=== PATIENT | male | born 1970 | race Caucasian/White ===

== ENCOUNTER → 2017-09-10 07:21 | Outpatient (CLI) | payer SELFPAY ==
[2017-09-10 08:10] LABS: Glucose GTT- Fasting 111 mg/dL (74-106)
[2017-09-10 09:16] LABS: Glucose GTT- 1 Hour 139 mg/dL (120-170)
[2017-09-10 09:17] LABS: Glucose GTT-30 minutes 152 mg/dL (110-170)
[2017-09-10 11:39] LABS: Glucose GTT- 3 Hour 64 mg/dL (74-106)
[2017-09-10 11:42] LABS: Glucose GTT- 2 Hour 111 mg/dL (70-120)
[2017-09-10 12:09] LABS: Glucose GTT- 4 Hour 90 mg/dL (74-106)
[2017-09-10 13:45] LABS: Glucose GTT- 5 Hour 92 mg/dL (74-106)
== END ==
PROVIDERS: Family Provider Family Medicine; PCP Family Medicine; Visit Provider Psychiatry & Neurology Neurology
DX: E16.2 Hypoglycemia, unspecified (principal)
CPT/HCPCS: 36415; 82951; 82952

== ENCOUNTER → 2017-09-12 10:04 | Outpatient (CLI) | payer SELFPAY ==
--- NOTE | 2017-09-12 10:16 | CDU_ITS ---
Reason For Study: CVA Rt. Velocities/BP Lt. Velocities/BP Prox CCA 112.0/23.5 cm/sec. Prox CCA 117.0/31.1 cm/sec. Mid CCA 122.0/32.2 cm/sec. Mid CCA 120.0/35.2 cm/sec. Dist CCA 107.0/32.2 cm/sec. Dist CCA 105.0/31.7 cm/sec. Prox ICA 94.3/23.6 cm/sec. Prox ICA 77.4/28.7 cm/sec. Mid ICA 84.9/33.8 cm/sec. Mid ICA 79.2/31.1 cm/sec. Dist ICA 75.6/29.3 cm/sec. Dist ICA 67.4/31.7 cm/sec. Rt. ICA/CCA = .77. Lt. ICA/CCA = .66. Prox ECA 122.0/23.6 cm/sec. Prox ECA 84.8/19.0 cm/sec. Rt. Vert. 46.9/13.5 cm/sec. Lt. Vert. 44.0/13.5 cm/sec. Right Extracranial There is intimal thickening but no significant atherosclerotic plaque noted in the right common carotid artery. There is no significant atherosclerotic plaque noted in the right internal carotid artery. There is no significant atherosclerotic plaque noted in the right external carotid artery. Antegrade flow is noted in the right vertebral artery. Left Extracranial There is intimal thickening but no significant atherosclerotic plaque noted in the left common carotid artery. There is no significant atherosclerotic plaque noted in the left internal carotid artery. There is no significant atherosclerotic plaque noted in the left external carotid artery. Antegrade flow is noted in the left vertebral artery. Procedure Carotid Duplex [id number]. Exam performed in department. Interpretation Summary No significant atherosclerotic plaque or stenosis noted in the internal carotid arteries bilaterally. Flow within the vertebral arteries is antegrade bilaterally. Ordering Physician: Bavis, Destin Referring Physician: Destin Benson Performed By: Aide Arora RVT
== END ==
PROVIDERS: Family Provider Family Medicine; PCP Family Medicine; Visit Provider Psychiatry & Neurology Neurology
DX: Z86.73 Personal history of transient ischemic attack (TIA), and cerebral infarction without residual deficits (principal)
CPT/HCPCS: 93880

== ENCOUNTER → 2020-04-07 10:04 | Outpatient (CLI) | payer SELFPAY ==
[2020-04-07 12:15] LABS: Basophil# 0.03 X10^3/uL; Basophil% 0.5 % (0-1); Eosinophil# 0.33 X10^3/uL; Eosinophils% 5.6 % (0-5); Hematocrit 45.3 % (40-54); Lymphocyte % 33.7 % (19-41); Mean Corp Hgb Conc 33.1 g/dL (32-36); Mean Corpuscular Hgb 29.4 pg (27.0-32.0); Mean Corpuscular Volume 88.8 fL (80-94); Mean Platelet Vol. 10.1 fl (6.2-12.0); Monocyte# 0.61 X10^3/uL; Monocyte% 10.3 % (0-10); NRBC Flagged by Analyzer 0 % (0-5); Neutrophil # 2.95 X10^3/uL (2.7-7.7); Neutrophil % 49.6 % (47-70); Platelet Count 245 K/mm3 (150-450); White Blood Count 5.9 K/mm3 (4.4-11.0)
[2020-04-07 12:26] LABS: Alanine Aminotransfer ALT/SGPT 40 U/L (16-61); Cholesterol 179 mg/dL (200); Creatinine, Serum 1.07 mg/dL (0.70-1.30); EST Glomerular Filtration Rate 77 mL/min (>60); Est Glom Filt Rate - Afr Amer 93 mL/min (>60); Glucose 107 mg/dL (74-106); High Density Lipoprotein 32 mg/dL
== END ==
PROVIDERS: PCP Family Medicine; Referring Provider Family Medicine; Visit Provider Family Medicine
DX: G43.909 Migraine, unspecified, not intractable, without status migrainosus (principal); E78.00 Pure hypercholesterolemia, unspecified
CPT/HCPCS: 36415; 82465; 82565; 82947; 83718; 84460; 85025

== ENCOUNTER 2020-04-13 11:15 | Observation (INO) | payer OTHER, SELFPAY ==
[2020-04-13] VITALS (9 sets, daily range): BP systolic 102–148; BP diastolic 57–72; PULSE 47–78; RESP 16–18; TEMP 36.4–36.6; O2SAT 95–100; BMI 29.7; BMI 29.1; BMI 29.2
--- NOTE | 2020-04-13 11:23 | NURSING ---
NO OLD EKGS
--- NOTE | 2020-04-13 11:25 | EKG12_ITS ---
Test Reason : CP Blood Pressure : / mmHG Vent. Rate : 053 BPM Atrial Rate : 053 BPM P-R Int : 162 ms QRS Dur : 146 ms QT Int : 432 ms P-R-T Axes : 067 -33 009 degrees QTc Int : 405 ms Sinus bradycardia Left axis deviation Right bundle branch block Abnormal ECG Confirmed by MITCHELL IWLEY, MICHAEL ([id number]), publications editor YANE CRAFT ([id number]) on 04/16/2020 12:59:21 PM Referred By: ANISA Confirmed By:MICHAEL MEDRANO MD
--- NOTE | 2020-04-13 11:25 | RAD_ITS ---
STUDY: X-RAY CHEST REASON FOR EXAM: Male, 50 years old. CHEST PAIN TECHNIQUE: Single AP portable view of the chest. COMPARISON: Comparison is made with prior study dated 01/11/2017. FINDINGS: EKG lead are seen. The lungs are clear and expanded. There is no demonstrated pleural abnormality. Normal size heart. Normal mediastinum and luigi. Normal visualized pulmonary arteries. There is atherosclerotic calcification of the aortic arch with tortuosity. There are diffuse degenerative changes of the visualized thoracic spine. Normal visualized ribs, clavicles, and shoulders. There is no demonstrated abnormality of the visualized soft tissue structures of the upper abdomen. RAD/Chest 1 View (Portable) IMPRESSION: No acute abnormality is seen. Electronically Signed: Dilan Angeles, at 12:04 EDT , Service support ,
[2020-04-13 11:48] LABS: Basophil# 0.02 X10^3/uL; Basophil% 0.3 % (0-1); Eosinophil# 0.31 X10^3/uL; Eosinophils% 5.3 % (0-5); Hematocrit 46.7 % (40-54); Hemoglobin 15.3 g/dL (13.0-16.5); Lymphocyte % 32.5 % (19-41); Mean Corp Hgb Conc 32.8 g/dL (32-36); Mean Corpuscular Hgb 29.2 pg (27.0-32.0); Mean Corpuscular Volume 89.1 fL (80-94); Mean Platelet Vol. 9.6 fl (6.2-12.0); Monocyte# 0.57 X10^3/uL; Monocyte% 9.7 % (0-10); NRBC Flagged by Analyzer 0 % (0-5); Neutrophil # 2.98 X10^3/uL (2.7-7.7); Platelet Count 220 K/mm3 (150-450); RBC Distribution Width CV 13.1 % (11.6-14.6); RBC Distribution Width SD 43.1 fl (35.1-43.9); Red Blood Count 5.24 M/mm3 (4.6-6.2); White Blood Count 5.9 K/mm3 (4.4-11.0)
--- NOTE | 2020-04-13 11:51 | ED.VISSUMM ---
- ER Visit Summary Date of Service: 04/13/20 Chief Complaint: Chest pain History of Present Illness: The patient is a 50 M who presents with chest pain that is been waxing and waning over the past 5 days. Patient states the pain is dull and pressure. Patient states it is over the left upper chest area. Patient states he also has pain between his shoulder blades. Patient states it is worse whenever he stops to rest. Patient denies any nausea or vomiting. Patient denies any diaphoresis. Patient denies any shortness of breath or cough. Patient denies any fevers or chills. Patient denies any lightheadedness or dizziness. Patient denies any palpitations. Patient denies any reflux symptoms. Physical Examination: Vital signs are stable. Patient is afebrile. Patient is in no acute distress. Oral mucosa is pink and moist. Neck is supple. Trachea is midline. There is no JVD noted. Heart was regular rate and rhythm. Lungs are clear and equal bilaterally. Abdomen is soft. Bowel sounds are normal. There is no tenderness. There is no rebound or guarding noted. Skin is warm dry. Cranial nerves II through XII are intact. There are no focal motor or sensory deficits noted. Extremities are intact. There is no calf tenderness or edema. Test Results: EKG showed sinus bradycardia with a rate of 53. There is a right bundle branch block pattern noted. There is left axis deviation. This was unchanged compared to previous EKG dated 07/18/2017. CBC and basic metabolic profile were normal. PT with INR was normal. Troponin was normal. Portable chest x-ray was obtained. There is no acute cardiopulmonary process. This was interpreted by the radiologist and reviewed by myself. Emergency Department Course and Treatment: Patient was given aspirin at his primary care physician's office just prior to arrival. Patient was ordered sublingual nitroglycerin here. Patient was feeling better prior to administration of sublingual nitroglycerin. Patient has a HEART score of 4. His last stress test was 08/03/2017 and was normal. Case was discussed with the hospitalist. She will admit the patient to her service. Patient understood and was agreeable with the plan. All questions were answered. Disposition: Admit to hospital Impression: 1. Chest pain This note was generated with KrowdPad[employer] software. It may contain incorrect words, spelling, and punctuation that were not noted in review of the chart prior to signing ED Disposition - Plan for ED Patient: Disposition: Acute Care Hospital [facility] Diagnosis: Chest pain Referrals: Jose Alfredo Britton MD [Primary Care Provider] -
[2020-04-13 12:02] LABS: Anion Gap 6 (5-15); BUN 15 mg/dL (7-18); BUN/Creat Ratio 13.2 RATIO (10-20); Calcium,Total 9.1 mg/dL (8.5-10.1); Chloride 107 mmol/L (98-107); Creatinine, Serum 1.14 mg/dL (0.70-1.30); EST Glomerular Filtration Rate 72 mL/min (>60); Est Glom Filt Rate - Afr Amer 87 mL/min (>60); Estimated Creatinine Clearance 78.27 ml/min; Glucose 96 mg/dL (74-106); Potassium 4.3 mmol/L (3.5-5.1); Sodium Level 140 mmol/L (136-145)
--- NOTE | 2020-04-13 12:39 | HP.PCM_ITS ---
Problem List (1) Chest pain Status: Acute Qualifiers: Chest pain type: unspecified Qualified Code(s): R07.9 - Chest pain, unspecified (2) HLD (hyperlipidemia) Status: Chronic Qualifiers: Hyperlipidemia type: unspecified Qualified Code(s): E78.5 - Hyperlipidemia, unspecified (3) Right bundle branch block Status: Chronic (4) Obstructive sleep apnea Status: Chronic (5) CVA (cerebral vascular accident) Status: Chronic Qualifiers: CVA mechanism: unspecified Qualified Code(s): I63.9 - Cerebral infarction, unspecified (6) Frequent headaches Status: Chronic (7) Seizure disorder Status: Chronic History of Present Illness Date of Admission: 04/13/20 Chief Complaint: Chest pain The patient is a 50 y/o M w/ PMHx: Seizure disorder, HECTOR, Incidentally noted L Caudate nucleus lacunar infarct on MRI without deficits, HLD, Migraines who presents to the [facility] ED on 04/13/20 with history of onset L focal parasternal chest discomfort, ongoing x 5 days, noted to be constantly present at 1-2/10 and more pronounced when he rests and thinks about it he notes, rating it then 4/10 in severity, described as pressure like sensation, not severe without associated dyspnea, nausea, emesis, diaphoresis. He does not some ongoing discomfort also between his shoulder blades, similar description. He also notes recent R elbow, specifically epicondyle discomfort with palpation and occasional wheezing with certain activities of similar timeline. Patient is extremely active, a nuñez but denies any specific recent injuries. Many of his activities are repetitively patterned. Work-up in the ED included 97.3, heart rate 49, BP 113/67, respiratory rate 18, 99% on room air, CBC with WC 5.9, hemoglobin 15.3, platelet 220 with increased immature granulocytes and eosinophils otherwise no significant shift, unremarkable coags, unremarkable BMP, troponin less than 0.015, EKG with evidence right bundle branch block which was noted on prior EKGs per discussion with ED physician, chest x-ray with no acute cardiopulmonary findings. Past Medical History Past Medical History (Chronic Problems): Chronic Problems (Last Updated 07/17/17 @ 12:08 by Debora Saha) HLD (hyperlipidemia) (Chronic) Seizure disorder (Chronic) Abnormal EKG (Chronic) Right bundle branch block (Chronic) Obstructive sleep apnea (Chronic) Chest pain of unknown etiology (Chronic) CVA (cerebral vascular accident) (Chronic) Frequent headaches (Chronic) Medical History: Medical History (Last Updated 07/17/17 @ 12:08 by Debora Saha) Right bundle branch block (Chronic) I45.10 Obstructive sleep apnea (Chronic) G47.33 CVA (cerebral vascular accident) (Chronic) I63.[address] of brain R90.89 Insomnia G47.00 Obesity (BMI 30.0-34.9) E66.9 old lacunar infarct Allergies No Known Allergies Allergy (Verified 04/13/20 11:18) Home Medications: Ambulatory Orders Medication Instructions Recorded Atorvastatin Calcium [Lipitor] 20 mg PO QHS 04/13/20 Clopidogrel Bisulfate [Clopidogrel] 75 mg PO DAILY 04/13/20 Topiramate [Topamax] 50 mg PO BID 04/13/20 Surgical History: Surgical History (Last Reviewed 07/17/17 @ 11:[address] John Freeman MD) History of lumbar puncture Onset Date: ~06/18/17 Z98.890 Right lower extremity surgery Surgical History: - - R knee arthroscopic surgery. Psychiatric History: No pertinent psych hx Lives: Spouse/ Significant Other Smoking Status: Never smoker Tobacco Use: Non-smoker Alcohol: None Drugs: None - *Family History Maternal Family History: Family History (Last Reviewed 07/17/17 @ 11:[address] John Freeman MD) Brother CAD (coronary artery disease) Mother CAD (coronary artery disease) CVA (cerebral vascular accident) History Items: Heart Disease Paternal Family History: Family History (Last Reviewed 07/17/17 @ 11:[address] John Freeman MD) Brother CAD (coronary artery disease) Mother CAD (coronary artery disease) CVA (cerebral vascular accident) History Items: Heart Disease, Stroke, - - Patient additionally notes a maternal uncle who had an ME in his 40s and did . Patient notes that all of his maternal uncles had significant cardiac disease. Sibling Family History: Family History (Last Reviewed 07/17/17 @ 11:[address] John Freeman MD) Brother CAD (coronary artery disease) Mother CAD (coronary artery disease) CVA (cerebral vascular accident) History Items: - - Patient with 2 brothers both of whom had MIs 1 at the age of 40 and the other at age 50. Review of Systems Constitutional: Reports: Fatigue. Denies: Anorexia, Chills, Fever, Malaise, Weakness, Weight Change HEENT: Denies: Head Aches, Sinus Congestion, Sinus Drainage Cardiovascular: Reports: Chest Pain, Chest Pressure. Denies: Chest Tightness, Heaviness, Light Headedness, Orthopnea, Palpitations, Syncope Respiratory: Denies: Cough, Shortness of Breath, Shortness of breath at rest, Shortness of breath upon exertion, Sputum production, Wheezing Gastrointestinal: Denies: Abdominal Pain, Nausea, Vomiting Genitourinary: Denies: Dysuria Musculoskeletal: Reports: Joint Pain. Denies: Joint Tenderness Skin: Denies: Rash, Wounds Neurological: Reports: Seizures - Hx seizures, no recent.. Denies: Focal weakness, Numbness, Tingling Psychiatric: Denies: Anxiety, Depression, Homicidal Ideations, Suicidal Ideations Hematologic/ Lymphatic: Reports: Easy Bruising, Easy Bleeding VTE Information - Inpt Only VTE Present on Admission: No VTE Mechan Device Prophylaxis: SCD's VTE Pharm Prophylaxis ordered?: Yes Subjective: Seated upright in the ED, no acute distress, mildly fatigued appearance, notes currently discomfort is 1 out of 10. Objective: Physical Examination: General: awake, alert, oriented x 3 and cooperative, seated upright in the ED bed in no apparent distress, notes still 1 of 10 discomfort focal left chest. Skin: normal color, turgor, no icterus, cyanosis. HEENT: AT/NC, EOMI, PERRLA, MMM, no carotid bruits or JVD noted. Lungs: CTA bilaterally, moderate effort, mild decrease BL bases, no rales, ronchi or wheezing. Heart: Bradycardic with regular rhythm; no gallop, rub audible. Abdomen: soft, NTTP, ND, normal BS, no HSM. Extremities: no cyanosis, clubbing, or edema, very mild right elbow epicondyle discomfort, no specific range of motion pain elicited. Neurological: patient awake, alert, oriented x 3; cognitive function intact; pupils equally reactive to light and accomodation; cranial nerves II-XII grossly normal, moving all 4 extremities, no focal deficits, strength preserved. Psychiatric: affect appears mildly fatigued otherwise normal, no acute evidence of depressive or anxiety feelings. - Physical Exam Vitals/I&O's: Vital Signs Temp Pulse Resp BP Pulse Ox 97.9 F 53 L 18 148/72 H 99 04/13/20 11:16 04/13/20 11:16 04/13/20 11:16 04/13/20 11:16 04/13/20 11:16 Oxygen Delivery Method Room Air Weight: 207 lb 0.225 oz Body Mass Index (BMI) 29.7 Laboratory Results 04/13/20 11:15: WBC 5.9, RBC 5.24, Hgb 15.3, Hct 46.7, MCV 89.1, MCH 29.2, MCHC 32.8, RDW Std Deviation 43.1, RDW Coeff of Leela 13.1, Plt Count 220, MPV 9.6, Immature Gran % (Auto) 1.200 H, Neut % (Auto) 51.0, Lymph % (Auto) 32.5, [place] % (Auto) 9.7, Eos % (Auto) 5.3 H, Baso % (Auto) 0.3, Absolute Neuts (auto) 3.0, Absolute Lymphs (auto) 1.90, Nucleated RBC % 0 04/13/20 11:15: PT 13.0, INR 1.0 04/13/20 11:15: Sodium 140, Potassium 4.3, Chloride 107, Carbon Dioxide 27.0, Anion Gap 6, BUN 15, Creatinine 1.14, Estim Creat Clear Calc 78.27, Est GFR (MDRD) Af Amer 87, Est GFR (MDRD) Non-Af 72, BUN/Creatinine Ratio 13.2, Glucose 96, Calcium 9.1, Troponin I < 0.015 Current Medications Nitroglycerin (Nitrostat) 0.4 mg SUBLINGUAL Q5M PRN PRN Reason: Chest pain Assessment/Plan All Active Problems (Last Updated 07/17/17 @ 12:08 by Debora Saha) Chest pain (Acute) Dizziness (Acute) Excessive sweating (Acute) The patient is a 50 y/o M w/ PMHx: Seizure disorder, HECTOR, Incidentally noted L Caudate nucleus lacunar infarct on MRI without deficits, HLD, Migraines who presents to the [facility] ED on 04/13/20 with history of onset L focal parasternal chest discomfort, ongoing x 5 days. 1. Chest Pain, atypical: EKG in ED with sinus rhythm with right bundle branch block with no acute evidence of ischemia, CXR w/ no acute cardiopulmonary findings, initial trop normal x1. Will admit to PCU, place on a monitored bed to assure no acute myocardial infarction with serial cardiac enzymes and EKGs. If serial cardiac enzymes and repeat EKGs remain unremarkable will pursue a.m. cardiac stress testing. Magnesium level requested. Plan FLP in AM. ASA, NG, morphine. 2. Suspected epicondylitis, right, medial versus focal neuritis: Minimal localized tenderness but patient notes that it is intermittently more severe depending on motion but not able to replicate on evaluation, continued cardiac evaluation as noted above, recommended activity modification, consider NSAIDs if cardiac evaluation unremarkable, icing after usage and potential brace/sleeve. 3. Hyperlipidemia: Continue home statin regimen. AM FLP. 4. Chronic headaches: We will continue patient home Topamax regimen 5. Seizure disorder: Patient notes history of seizures, will continue patient home Topamax regimen. 6. Hx CVA: Will continue home plavix, statin regimen, no hx HTN. 7. HECTOR: Non-complaint with CPAP. 8. DVT prophylaxis: SCDs, lovenox. OBSV E&M: 13284 Initial observation care L3
--- NOTE | 2020-04-13 13:12 | EKG12_ITS ---
Test Reason : CP ADMISSION Blood Pressure : / mmHG Vent. Rate : 049 BPM Atrial Rate : 049 BPM P-R Int : 168 ms QRS Dur : 142 ms QT Int : 444 ms P-R-T Axes : 060 -30 000 degrees QTc Int : 401 ms Sinus bradycardia Left axis deviation Right bundle branch block Abnormal ECG Confirmed by DAIN WILEY, RASHARD ([id number]), newspaper photo editor LEANA JOSEPH ([id number]) on 04/16/2020 10:50:34 AM Referred By: MARIA E Confirmed By:RASHARD GAUTAM MD
[2020-04-13] MEDS: Pantoprazole Sodium 20 MG Tablet PO ×2 (14:04→21:03)
[2020-04-13 15:29] LABS: Magnesium 2.2 mg/dL (1.6-2.6)
[2020-04-13] MEDS: Atorvastatin Calcium 20 MG Tablet PO (21:04)
[2020-04-13] MEDS: Topiramate 50 MG Tablet PO (21:04)
[2020-04-13] MEDS: 0.9% Normal Saline 1,000 ML 100 ML IV (23:40)
[2020-04-14 03:00] VITALS: PULSE 55
[2020-04-14 05:00] VITALS: BP 114/74; PULSE 69; RESP 17; TEMP 36.2; O2SAT 98
[2020-04-14] MEDS: Aspirin E.C. 81 MG Tablet PO (05:26)
[2020-04-14] MEDS: Clopidogrel Bisulfate 75 MG Tablet PO (05:26)
[2020-04-14 05:36] LABS: Absolute Lymphocyte Count 1.92 X10^3/uL (0.83-4.51); Absolute Neutrophil Count 3.9 X10^3/uL (2.0-7.7); Basophil# 0.03 X10^3/uL; Basophil% 0.4 % (0-1); Eosinophils% 5.8 % (0-5); Hematocrit 43.4 % (40-54); Hemoglobin 14.6 g/dL (13.0-16.5); Lymphocyte # 1.92 X10^3/ul (4.0); Mean Corp Hgb Conc 33.6 g/dL (32-36); Mean Corpuscular Hgb 30.1 pg (27.0-32.0); Mean Corpuscular Volume 89.5 fL (80-94); Mean Platelet Vol. 9.7 fl (6.2-12.0); Monocyte# 0.59 X10^3/uL; Monocyte% 8.6 % (0-10); NRBC Flagged by Analyzer 0 % (0-5); Neutrophil # 3.89 X10^3/uL (2.7-7.7); Neutrophil % 56.9 % (47-70); Platelet Count 201 K/mm3 (150-450); RBC Distribution Width CV 13.1 % (11.6-14.6); RBC Distribution Width SD 42.8 fl (35.1-43.9); Red Blood Count 4.85 M/mm3 (4.6-6.2); White Blood Count 6.9 K/mm3 (4.4-11.0)
--- NOTE | 2020-04-14 05:55 | EKG12_ITS ---
Test Reason : AM EKG Blood Pressure : / mmHG Vent. Rate : 049 BPM Atrial Rate : 049 BPM P-R Int : 160 ms QRS Dur : 146 ms QT Int : 456 ms P-R-T Axes : 071 -26 017 degrees QTc Int : 411 ms Sinus bradycardia Right bundle branch block Abnormal ECG When compared with ECG of 13-APR-2020 11:22, MANUAL COMPARISON REQUIRED, DATA IS UNCONFIRMED Confirmed by MITCHELL WILEY, MICHAEL ([id number]), news assignment editor YANE CRAFT ([id number]) on 04/20/2020 12:42:10 PM Referred By: DR SANDERSON Confirmed By:MICHAEL MEDRANO MD
[2020-04-14 05:56] LABS: ALB/GLOB Ratio 0.9 RATIO (0.9-2.4); AST(SGOT) 20 U/L (15-37); Alanine Aminotransfer ALT/SGPT 34 U/L (16-61); Albumin, Serum 3.4 g/dL (3.2-5.0); Alkaline Phosphatase 74 U/L (45-117); Anion Gap 3 (5-15); BUN 18 mg/dL (7-18); BUN/Creat Ratio 15.9 RATIO (10-20); Calcium,Total 8.8 mg/dL (8.5-10.1); Chloride 108 mmol/L (98-107); Cholesterol 171 mg/dL (200); Creatinine, Serum 1.13 mg/dL (0.70-1.30); EST Glomerular Filtration Rate 72 mL/min (>60); Est Glom Filt Rate - Afr Amer 88 mL/min (>60); Estimated Creatinine Clearance 78.96 ml/min; Globulin 3.6 g/dL (2.2-4.2); Glucose 107 mg/dL (74-106); High Density Lipoprotein 31 mg/dL; Potassium 4.5 mmol/L (3.5-5.1); Sodium Level 138 mmol/L (136-145); Triglycerides 168 mg/dL; Very Low Density Lipoprotein 34 mg/dL (5-40)
[2020-04-14 07:31] VITALS: O2SAT 94
[2020-04-14 07:37] VITALS: PULSE 57
[2020-04-14 10:35] VITALS: BP 120/57; PULSE 70; RESP 16; TEMP 37.1; O2SAT 97
[2020-04-14] MEDS: Pantoprazole Sodium 20 MG Tablet PO (10:38)
--- NOTE | 2020-04-14 13:02 | STRESSREP ---
Stress Test Report Exercise myocardial perfusion stress test. 50-year-old man with a history of chest pain. Stress protocol: Resting EKG demonstrates sinus bradycardia with a rate of 55 bpm right bundle branch block pattern is noted. Resting blood pressure is 122/68 mmHg. The patient exercised according to regular [place] protocol for total duration of 9 minutes. The maximum heart rate attained 160 bpm which was 95% of max impacted heart rate the maximum workload was 10.1 metabolic equivalents. At rest there were no ST or T wave changes noted to suggest ischemia at peak exercise upsloping ST changes only were noted we did not meet the criteria for ischemia. No clinical angina was noted the test was terminated due to leg fatigue. No chest pain was noted. The peak blood pressure was 200/70 mmHg which was normal blood pressure response to exercise. Myocardial perfusion protocol. 12.0 mCi of technetium 99m sestamibi was injected at rest. The patient exercised for a total duration of 9 minutes. The maximum heart rate attained was 160 bpm. At peak exercise 34.6 mCi of technetium 99m sestamibi was injected stress images were obtained stress and rest images were reconstructed and compared in the short axis vertical long horizontal long axis. Gated images were also obtained. Perfusion SPECT analysis: Review of the stress images demonstrate normal uptake of tracer noted in all areas of the myocardium the resting images similarly demonstrate normal uptake of tracer noted in all areas of the myocardium. No reversibility was noted to suggest ischemia no previous infarct is noted. Gated SPECT analysis: The gated ejection fraction was noted to be 60%. Conclusion: Normal exercise myocardial perfusion stress test at a high workload. Preserved ejection fraction..
--- NOTE | 2020-04-14 13:06 | PCM.DC ---
- Discharge Diagnoses Current Active Problems: Current Active and Chronic Problems (Last Updated 07/17/17 @ 12:08 by Debora Saha) 1. Chest Pain, atypical, suspected secondary to musculoskeletal etiology 2. Suspected epicondylitis, right, medial versus focal neuritis 3. Hyperlipidemia 4. Chronic headaches 5. Seizure disorder 6. Hx CVA 7. HECTOR You will use the following diet at home:: Cardiac Your food should be the consistency of: Regular Your liquids should be the consistency of: Regular/Thin Discharge Activity: - - Encourage avoidance of activities contributing to ongoing intermittent R elbow pain given suspected use associated. May resume sexual activity in: No Restrictions Call your doctor if you observe: Fever of 101 or Higher, Inability to urinate, Inability to have a bowel movement, Shortness of breath, Dizziness, Fainting spells, Chest pain, Uncontrolled pain Instructions: ED Chest Pain Atypical Unkn Cause, ED Chest Pain NonCardiac Additional Instructions: CHEST PAIN: The chest pain you experienced is felt likely not from your heart. The stress test is negative and your heart squeezed normally. The secured entrance monitor you wore showed no problem with the rhythm of your heart. Additionally, the cardiac enzyme series performed remained normal. Sometimes chest pain can come from a problem with the muscles or skeleton and/or associated with straining or doing some strenuous activity you do not normally perform. Generally Aleve or Motrin will help allieviate this discomfort if these medications are appropriate for you to take; however, at this time given your concurrent elbow pain we are using mobic which is similar to these medications and should not be used together. Chest pain can also be associated with anxiety and with this you frequently have racing heart, trouble sleeping and irritability. It can also come from gastroesophageal reflux disease or heartburn. People who smoke experience increased heartburn because nicotine decreases the pressure in the lower esophageal sphincter and causes reflux. This type of discomfort is well treated with drinking a large glass of cold water which strips the acid out of the esophagus or taking Mylanta, Maalox or Pepto-Bismol. Other foods to avoid if you have reflux are chocolate, peppermint and calcium containing products such as Tums. ELBOW PAIN: One possible etiology for your Elbow pain includes Medial epicondylitis (golfer's elbow). This is a type of tendinitis that affects the inside of the elbow where forearm tendons connect to the bony part on the inside of the elbow. In your case this may be secondary to irritation. Treatments include rest, ice, pain relievers, stretching or physical therapy, and elbow bandaging. At this time you have been given rx for low dose daily mobic. Please avoid actions that cause discomfort. There are other possible etiologies as well that may be further assessed outpatient pending your response. Allergies/Adverse Reactions: Allergies No Known Allergies Allergy (Verified 04/13/20 11:18) Medications to take at Discharge Atorvastatin Calcium [Lipitor] 10 mg PO QHS 04/13/20 Clopidogrel Bisulfate [Clopidogrel] 75 mg PO DAILY 04/13/20 Topiramate [Topamax] 50 mg PO DAILY 04/13/20 Meloxicam [Mobic] 7.5 mg PO DAILY #7 tab 04/14/20 The following prescriptions were given: Meloxicam [Mobic] 7.5 mg PO DAILY #7 tab Transmission Status: Pending to [facility] Primary Care Physician: Jose Alfredo Britton MD [Primary Care Provider] - Please follow up with your Primary Care Physician in: Follow-up within 3-5 days to review admission. Test Results: Test results from this visit will be discussed in further detail at your follow-up appointment, if applicable. Proposed Discharge Date: 04/14/20
--- NOTE | 2020-04-14 13:15 | DS.PCM_ITS ---
Discharge Date and Diagnosis - Problem List Patient Problems: Active and Suspected Problems (Last Updated 07/17/17 @ 12:08 by Debora Saha) Chest pain (Acute) Date of Admission: 04/13/20 Date of Discharge: 04/14/20 - Primary Discharge Diagnosis Acute Problems: Active Problems (Last Updated 07/17/17 @ 12:08 by Debora Saha) 1. Chest Pain, atypical, suspected secondary to musculoskeletal etiology 2. Suspected epicondylitis, right, medial versus focal neuritis 3. Hyperlipidemia 4. Chronic headaches 5. Seizure disorder 6. Hx CVA 7. HECTOR - Secondary Discharge Diagnosis Chronic Problems: Chronic Problems (Last Updated 07/17/17 @ 12:08 by Debora Saha) HLD (hyperlipidemia) (Chronic) Seizure disorder (Chronic) Abnormal EKG (Chronic) Right bundle branch block (Chronic) Obstructive sleep apnea (Chronic) Chest pain of unknown etiology (Chronic) CVA (cerebral vascular accident) (Chronic) Frequent headaches (Chronic) Hospital Course and Treatment Imaging Results: 04/14/20 05:55 Nuclear Stress Test - Treadmil [NM] AM (NON MEDS) Operations: None Procedures: EKG, Stress test Summary of Care Provided: The patient is a 50 y/o M w/ PMHx: Seizure disorder, HECTOR, Incidentally noted L Caudate nucleus lacunar infarct on MRI without deficits, HLD, Migraines who presented to the [facility] ED on 04/13/20 with history of onset L focal parasternal chest discomfort, ongoing x 5 days, noted to be constantly present at 1-2/10 and more pronounced when he rests and thinks about it he notes, rating it then 4/10 in severity, described as pressure like sensation, not severe without associated dyspnea, nausea, emesis, diaphoresis. He does not some ongoing discomfort also between his shoulder blades, similar description. He also notes recent R elbow, specifically epicondyle discomfort with palpation and occasional wheezing with certain activities of similar timeline. Patient is extremely active, a nuñez but denies any specific recent injuries. Many of his activities are repetitively patterned. Work-up in the ED included 97.3, heart rate 49, BP 113/67, respiratory rate 18, 99% on room air, CBC with WC 5.9, hemoglobin 15.3, platelet 220 with increased immature granulocytes and eosinophils otherwise no significant shift, unremarkable coags, unremarkable BMP, troponin less than 0.015, EKG with evidence right bundle branch block which was noted on prior EKGs per discussion with ED physician, chest x-ray with no acute cardiopulmonary findings. The patient was admitted to PCU, maintained on cardiac telemetry, serial cardiac enzymes were obtained as well as serial EKGs which remained unremarkable. Patient underwent AM stress testing which was noted to be negative for inducible ischemia. FLP was obtained during admission and noted to be triglycerides 168, total cholesterol 171, LDL 106, VLDL 34, HDL 31. Given etiology felt more likely musculoskeletal with some reproduction on palpation as well as complaints of left medial epicondyle discomfort suspected to be epicondylitis patient was discharged on a short course of low-dose Mobic with recommendation for rest, consideration of sleeve, avoidance of overuse, icing if this is 7. Patient was discharged to home in stable condition with recommendation for follow-up with primary care physician within 3-5 days. DAY OF DISCHARGE PROGRESS NOTE: Subjective: Patient without acute event overnight per self and nursing report. Patient denies any recurrent episodes of more sharp discomfort to the left chest but ongoing dull discomfort which again is reproducible with palpation. Patient denies fever, chills, nausea, emesis, abdominal pain or dyspnea. Patient agreeable to discharge to home. Patient will be discharged with follow- up with primary care physician within 3-5 days. Objective: T 97.8, heart rate 70, BP 120/57, respiratory rate 16, 97% on room air. Physical Examination: General: awake, alert, oriented x 3 and cooperative, seated upright in the PCU bed in no apparent distress, still L focal discomfort, only 1/10, worse with palpation. Skin: normal color, turgor, no icterus, cyanosis. HEENT: AT/NC, EOMI, PERRLA, MMM. Lungs: CTA bilaterally, moderate effort, mild decrease BL bases, no rales, ronchi or wheezing. Heart: Bradycardic with regular rhythm; no gallop, rub audible. Abdomen: soft, NTTP, ND, normal BS. Extremities: no cyanosis, clubbing, or edema, no discomfort currently R elbow with palpation/ROM. Neurological: patient awake, alert, oriented x 3; cognitive function intact; pupils equally reactive to light and accomodation; cranial nerves II-XII grossly normal, moving all 4 extremities, no focal deficits, strength preserved. Psychiatric: affect appears normal, no acute evidence of depressive or anxiety feelings. Assessment and Plan: Please see hospital summary above. Patient Problems: Active and Suspected Problems (Last Updated 07/17/17 @ 12:08 by Debora Saha) Chest pain (Acute) - Physical Exam Vitals/I&O's: Vital Signs Temp Pulse Resp BP Pulse Ox 98.7 F 70 16 120/57 L 97 04/14/20 10:35 04/14/20 10:35 04/14/20 10:35 04/14/20 10:35 04/14/20 10:35 Oxygen Delivery Method Room Air Weight: 203 lb 4.8 oz Body Mass Index (BMI) 29.1 Intake and Output for Last 24 Hours 04/12/20 04/13/20 04/14/20 23:59 23:59 23:59 Intake Total 1040 / 1040 1030 / 1030 Balance 1040 / 1040 1030 / 1030 Laboratory Results 04/13/20 14:37: Magnesium 2.2, Troponin I < 0.015 04/13/20 17:13: Troponin I < 0.015 04/14/20 05:25: WBC 6.9, RBC 4.85, Hgb 14.6, Hct 43.4, MCV 89.5, MCH 30.1, MCHC 33.6, RDW Std Deviation 42.8, RDW Coeff of Leela 13.1, Plt Count 201, MPV 9.7, Immature Gran % (Auto) 0.300, Neut % (Auto) 56.9, Lymph % (Auto) 28.0, Forest % (Auto) 8.6, Eos % (Auto) 5.8 H, Baso % (Auto) 0.4, Absolute Neuts (auto) 3.9, Absolute Lymphs (auto) 1.92, Nucleated RBC % 0 04/14/20 05:25: Sodium 138, Potassium 4.5, Chloride 108 H, Carbon Dioxide 27.0, Anion Gap 3 L, BUN 18, Creatinine 1.13, Estim Creat Clear Calc 78.96, Est GFR (MDRD) Af Amer 88, Est GFR (MDRD) Non-Af 72, BUN/Creatinine Ratio 15.9, Glucose 107 H, Calcium 8.8, Total Bilirubin 1.00, AST 20, ALT 34, Alkaline Phosphatase 74, Total Protein 7.0, Albumin 3.4, Globulin 3.6, Albumin/Globulin Ratio 0.9, Triglycerides 168, Cholesterol 171, LDL Cholesterol 106, VLDL Cholesterol 34, HDL Cholesterol 31 L Current Medications Acetaminophen (Tylenol) 650 mg PO Q6H PRN PRN PRN Reason: Pain Score 1-10/Temp > 100.7 F Al Hydroxide/Mg Hydroxide (Mylanta Ii) 30 ml PO Q6H PRN PRN PRN Reason: Gastric Burning Albuterol Sulfate (Ventolin Aerosols) 2.5 mg INHALATION Q2H PRN PRN PRN Reason: Dyspnea, wheezing Aspirin (Ecotrin) 81 mg PO DAILY@0800 [facility] Last Admin: 04/14/20 05:26 Dose: 81 mg Documented by: Atorvastatin Calcium (Lipitor) 20 mg PO QHS [facility] Last Admin: 04/13/20 21:04 Dose: 20 mg Documented by: Clopidogrel Bisulfate (Plavix) 75 mg PO DAILY [facility] Last Admin: 04/14/20 05:26 Dose: 75 mg Documented by: Enoxaparin Sodium (Lovenox) 40 mg SC DAILY [facility] Last Admin: 04/14/20 11:36 Dose: Not Given Documented by: Guaifenesin (Robitussin) 20 ml PO Q4H PRN PRN PRN Reason: COUGH Hydralazine HCl (Apresoline Iv) 10 mg IV Q4H PRN PRN PRN Reason: SBP > 160 Sodium Chloride () 1,000 mls @ 100 mls/hr IV .Q10H [facility] Last Admin: 04/14/20 11:35 Dose: Not Given Documented by: Sodium Chloride () 500 mls @ 15 mls/hr IV PRN PRN PRN Reason: Blood Transfusion Sodium Chloride () 250 mls @ 15 mls/hr IV .[id number] PRN PRN Reason: Saline Flush Sodium Chloride () 250 mls @ 15 mls/hr IV .[id number] PRN PRN Reason: Additional IVPB Infusion Magnesium Hydroxide (Milk Of Magnesia) 30 ml PO DAILY PRN PRN PRN Reason: Constipation Melatonin (Melatonin) 3 mg PO QHS PRN PRN PRN Reason: INSOMNIA Morphine Sulfate () 2 mg IV Q3H PRN PRN PRN Reason: Pain Score 6-10/10 Nitroglycerin (Nitrostat) 0.4 mg SUBLINGUAL Q5M PRN PRN Reason: CARDIAC/CHEST PAIN Ondansetron HCl (Zofran) 4 mg IV Q8H PRN PRN PRN Reason: NAUSEA/VOMITING Oxycodone HCl (Oxyir) 5 mg PO Q4H PRN PRN PRN Reason: Pain Score 4-5/10 Pantoprazole Sodium (Protonix) 20 mg PO BID [facility] Last Admin: 04/14/20 10:38 Dose: 20 mg Documented by: Prochlorperazine Edisylate (Compazine Iv) 5 mg IV Q4H PRN PRN PRN Reason: Breakthrough Nausea/Vomiting Psyllium Hydrophilic Mucilloid (Metamucil) 1 packet PO DAILY PRN PRN PRN Reason: Constipation Senna/Docusate Sodium (Senokot-S, Saba-Colace) 2 tablet PO BID PRN PRN PRN Reason: Constipation Sodium Chloride () 10 - 40 ml IV UD PRN PRN Reason: SALINE FLUSH Throat Lozenges (Cepacol Sore Throat Lozenge) 1 lozenge MUCOUS MEM Q2H PRN PRN PRN Reason: SORE THROAT Topiramate (Topamax) 50 mg PO BID [facility] Last Admin: 04/14/20 11:36 Dose: Not Given Documented by: Discharge Activity: - - Encourage avoidance of activities contributing to ongoing intermittent R elbow pain given suspected use associated. May resume sexual activity in: No Restrictions Call your doctor if you observe: Fever of 101 or Higher, Inability to urinate, Inability to have a bowel movement, Shortness of breath, Dizziness, Fainting spells, Chest pain, Uncontrolled pain Home Medications: Medications to take at Discharge Atorvastatin Calcium [Lipitor] 10 mg PO QHS 04/13/20 Clopidogrel Bisulfate [Clopidogrel] 75 mg PO DAILY 04/13/20 Topiramate [Topamax] 50 mg PO DAILY 04/13/20 Meloxicam [Mobic] 7.5 mg PO DAILY #7 tab 04/14/20 Following Prescriptions Were Given to Patient: Meloxicam [Mobic] 7.5 mg PO DAILY #7 tab Transmission Status: Pending to [id number] Primary Care Physician: Jose Alfredo Britton MD [Primary Care Provider] - Please follow up with your Primary Care Physician in: Follow-up within 3-5 days to review admission. Patient Instructions: ED Chest Pain NonCardiac, ED Chest Pain Atypical Unkn Cause Disposition: Home Minutes spent on discharge:: 35 Patient Condition:: Good Medical Necessity - Tobacco Use Smoking Status: Never smoker Tobacco Use: Non-smoker Meaningful Use Info Meaningful Use Diagnoses (Choose all that apply): None applicable OBSV E&M: 08053 Observation care discharge
--- NOTE | 2020-04-14 14:30 | PHA.DC.MC ---
Pharmacy Service has performed discharge medication reconciliation and counseling for this patient. 1. MELOXICAM 7.5MG PO DAILY FOR 7 DAYS The patient's discharge medication list was reviewed for discrepancies and discrepancies were resolved. Home Medications Atorvastatin Calcium [Lipitor] 10 mg PO QHS 04/13/20 Clopidogrel Bisulfate [Clopidogrel] 75 mg PO DAILY 04/13/20 Topiramate [Topamax] 50 mg PO DAILY 04/13/20 Meloxicam [Mobic] 7.5 mg PO DAILY #7 tab 04/14/20 The patient was counseled on the following discharge medications and changes in medications for homegoing were reviewed. The Reason for Use, instructions for use, and potential side effects were reviewed for all new medications. The patient's questions regarding all of their medications were answered. The patient was able to verbally demonstrate an understanding of their discharge medications. Patient counseled by pharmacy aide, Renetta.
== END 2020-04-14 14:50 | disposition home or self-care (01) ==
LOC: ED 12:41 → PCU 12:54
PROVIDERS: Admitting Provider Family Medicine; Emergency Provider Emergency Medicine; PCP Family Medicine; Visit Provider Family Medicine
DX: R07.89 Other chest pain (principal); E78.5 Hyperlipidemia, unspecified; G47.33 Obstructive sleep apnea (adult) (pediatric); G40.909 Epilepsy, unspecified, not intractable, without status epilepticus; M25.519 Pain in unspecified shoulder; I45.10 Unspecified right bundle-branch block; G43.909 Migraine, unspecified, not intractable, without status migrainosus; R00.1 Bradycardia, unspecified; Z86.73 Personal history of transient ischemic attack (TIA), and cerebral infarction without residual deficits; Z79.899 Other long term (current) drug therapy; Z79.82 Long term (current) use of aspirin; Z79.02 Long term (current) use of antithrombotics/antiplatelets
CPT/HCPCS: 36415; 71045; 78452; 80048; 80053; 80061; 83735; 84484; 85025; 85610; 93005; 93017; 96360; 96361; 99218; 99251; 99283; A9500; J7030; A4216; G0378; G0463

== ENCOUNTER → 2020-05-11 07:39 | Outpatient (CLI) | payer SELFPAY ==
[2020-04-13 13:28] VITALS: BMI 29.1
--- NOTE | 2020-05-11 07:42 | CT_ITS ---
STUDY: CARDIAC CALCIUM SCORING - CT CHEST REASON FOR EXAM: Male, 50 years old. CHEST PAIN. OVER READ ONLY/ DISTRICT LEADER READING CORONARY ARTERIES. RADIATION DOSAGE (If Supplied By Facility): CTDIvol = ( 30.22 ) mGy, DLP = ( 1711.43 ) mGycm TECHNIQUE: Axial non-enhanced images were acquired through the heart for the sole purpose of measuring coronary artery calcium. Individualized dose optimization techniques were used for this CT. COMPARISON: None. FINDINGS: The visualized lungs are clear. The heart is normal in size. Normal pericardium. There are calcifications of the root of the aorta. There is a partially calcified subcarinal lymph node. Calcified lymph nodes are also seen in the right hilum. Normal visualized pulmonary arteries. Normal visualized thoracic aorta Minimal degenerative changes of the lower thoracic spine. Calcified granulomata are seen within the spleen. The upper abdomen is otherwise unremarkable. CT/Limited Chest CT w/CCTA IMPRESSION: 1. Old granulomatous disease. 2. Calcifications at the root of the aorta. 3. Mild degenerative changes of the thoracic spine.. Electronically Signed: Miguel Hendrickson DO at 21:44 EDT Tel [phone], Service support ,
[2020-05-11 07:46] VITALS: BP 108/51; PULSE 60; RESP 16; O2SAT 97; BMI 28.7
[2020-05-11 08:02] VITALS: BP 108/51; PULSE 60
[2020-05-11] MEDS: Nitroglycerin SL (ED/IMG/CATH) 0.4 MG TABLET SUBLINGUAL (08:02)
[2020-05-11 08:07] VITALS: BP 96/48; PULSE 70; RESP 18; O2SAT 96
--- NOTE | 2020-05-11 18:05 | CCTA.WCONT ---
CCTA w/Cont Coronary Arteries Date of Study:: 05/11/20 Chest Pain The patient underwent high-resolution CT imaging of the chest on 05-11-2020 with attention to the coronary arteries. The images were analyzed for the presence and extent of coronary calcification using coronary calcium quantification software. The patient was reported as tolerating the procedure well with no obvious complications. LEFT MAIN CORONARY ARTERY The left main coronary artery appears to be a large vessel giving rise to the left anterior descending and left circumflex coronary arteries. Based upon the images obtained there appears to be no obvious angiographically significant appearing CAD. LEFT ANTERIOR DESCENDING CORONARY ARTERY: The left anterior descending coronary artery appears to be a large vessel giving rise to a septal longwall machine operator helper system and a diagonal branching system. Based upon the images obtained there appears to be no obvious angiographically significant appearing CAD. LEFT CIRCUMFLEX CORONARY ARTERY: The left circumflex coronary artery appears to be a dominant system. Based upon the images obtained there appears to be no obvious angiographically significant appearing CAD. RIGHT CORONARY ARTERY: The right coronary artery appears to be a small nondominant system. Based upon the images obtained there appears to be no obvious angiographically significant appearing CAD. THORACIC AORTA: The thoracic aorta demonstrates the appearance of calcification in the aortic root area. PULMONARY ARTERY: The main pulmonary artery and proximal portions of the right and left pulmonary artery appear to be patent with no obvious filling defects appreciated. LEFT ATRIUM/APPENDAGE: The left atrium/appendage appear to be patent with no obvious filling defects appreciated. MITRAL VALVE: Mitral valve appears to be bileaflet AORTIC VALVE: The aortic valve appears to be trileaflet. LEFT VENTRICLE: Based upon the images obtained there appears to be grossly normal left ventricular size, wall motion, and systolic function with a reported LVEF of 53%. CORONARY CALCIUM SCORE: The coronary calcium score is reported at 0. Based upon prepublished reference tables this would be compatible with a very low cardiovascular risk with less than 5% chance of the presence of coronary artery disease/identifiable atherosclerotic plaque. Impression: 1. Based upon the images obtained there appears to be no obvious angiographically significant appearing coronary artery disease. 2. Based upon the images obtained there appears to be grossly normal left ventricular size, wall motion, and systolic function with a reported LVEF 53%. 3. The coronary calcium score was reported at 0. This note was generated using a voice recognition system and there may be incorrect words, spelling or punctuation that were not noted when reviewing the office note prior to saving.
== END ==
PROVIDERS: PCP Family Medicine; Referring Provider Family Medicine; Visit Provider Family Medicine
DX: R07.9 Chest pain, unspecified (principal); Z82.49 Family history of ischemic heart disease and other diseases of the circulatory system
CPT/HCPCS: 75571; 75574; 76380; Q9967; A4216